=== PATIENT | female | born 1970 | race Caucasian/White ===

== ENCOUNTER 2016-10-18 22:57 | Emergency (ER) | payer MEDICARE ==
[~2016-10-18] VITALS: Ht 162.6 cm; Wt 85.3 kg
[~2016-10-18 22:57] MED LIST: BIOT0.5P MC; LITH450T16 PO; LORA1TAB PO; METO100T11 PO; OMEG300C PO; OMEP20TA8 PO; PRAV20TA PO; SPIR100T2 PO; ZOLP10TA PO
[2016-10-18] MEDS ORDERED: RABIES IMMUNE GLOBULIN PF 150 UNIT/ML 10ML VIAL. VAX IM ONE (23:30)
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
[2016-10-19] MEDS ORDERED: RABIES VIRUS VACC PF 2.5 UNIT / 1 ML VIAL. VAX IM ONE (00:30)
[2016-10-19] MEDS ORDERED: RABIES IMMUNE GLOBULIN PF 300 UNIT/2 ML VIAL. VAX IM ONE (00:30)
[2016-10-19] MEDS ORDERED: RABIES IMMUNE GLOBULIN PF 150 UNIT/ML 10ML VIAL. VAX IM ONE (00:30)
[2016-10-19 01:35] VITALS: BP 150/80
== END 2016-10-19 01:35 | disposition home or self-care (01) ==
LOC: ER 22:57
DX: Z20.3 Contact with and (suspected) exposure to rabies (principal); I10 Essential (primary) hypertension; E03.9 Hypothyroidism, unspecified; Z88.5 Allergy status to narcotic agent
CPT/HCPCS: 90376; 90471; 90675; 96372; 99284-25

== ENCOUNTER 2017-05-04 13:21 | Emergency (ER) | payer MEDICARE ==
[~2017-05-04 13:21] MED LIST changes: +METO-247 PO; -METO100T11 PO
--- NOTE | 2017-05-04 14:14 | RAD ---
CT of the head without contrast, 05/04/2017: History: Injury The ventricles are within normal limits in size. There is no shift of the midline structures. There is no evidence of acute intracranial hemorrhage or mass effect. IMPRESSION: No acute intracranial abnormality is detected. PQRS Compliance Statement: One or more of the following individualized dose reduction techniques were utilized for this examination: 1. Automated exposure control 2. Adjustment of the mA and/or kV according to patient size 3. Use of iterative reconstruction technique
--- NOTE | 2017-05-04 14:36 | PHYS DOC ---
Past History Past Medical History: Anxiety, Bipolar, High Cholesterol, Hypertension Past Surgical History: , Tubal ligation, Other Additional Past Surgical Histo: right shoulder surg Smoking: Non-smoker Alcohol Use: None Drug Use: None Adult General Chief Complaint Chief Complaint: HEAD INJURY/TRAUMA [facility] HPI 46-year-old female patient state she was doing laundry yesterday and stand up suddenly and hit left side of her head to the corner of wooden cabinet without loss of consciousness. Patient complaining of nausea for a short time and contusion of scalp and called her primary care physician today who recommended to come to ER for evaluation. Patient denies focal neurodeficit, blurred vision , vomiting, confusion, fever and chills, neck pain. Review of Systems Review of Systems Constitutional: Denies fever or chills [] Eyes: Denies change in visual acuity, redness, or eye pain [] HENT: Denies nasal congestion or sore throat [] Respiratory: Denies cough or shortness of breath [] Cardiovascular: No additional information not addressed in HPI [] GI: Denies abdominal pain, vomiting, bloody stools or diarrhea, reports nausea [] : Denies dysuria or hematuria [] Musculoskeletal: Denies back pain or joint pain [] Integument: Denies rash or skin lesions [] Neurologic: Denies headache, focal weakness or sensory changes [] Endocrine: Denies polyuria or polydipsia [] All other systems were reviewed and found to be within normal limits, except as documented in this note. Allergies Allergies Allergies Coded Allergies Type Severity Reaction Last Updated Verified morphine Allergy Intermediate Itching 02/13/13 Yes Physical Exam Physical Exam Constitutional: Well developed, well nourished, no acute distress, non-toxic appearance. [] HENT: Normocephalic, bilateral external ears normal, oropharynx moist, no oral exudates, nose normal, contusion of left parietal[] Eyes: PERRLA, EOMI, conjunctiva normal, no discharge. [] Neck: Normal range of motion, no tenderness, supple, no stridor. [] Cardiovascular:Heart rate regular rhythm, no murmur [] Lungs & Thorax: Bilateral breath sounds clear to auscultation [] Abdomen: Bowel sounds normal, soft, no tenderness, no masses, no pulsatile masses. [] Skin: Warm, dry, no erythema, no rash. [] Back: No tenderness, no CVA tenderness. [] Extremities: No tenderness, no cyanosis, no clubbing, ROM intact, no edema. [] Neurologic: Alert and oriented X 3, normal motor function, normal sensory function, no focal deficits noted. [] Psychologic: Affect normal, judgement normal, mood normal. [] Current Patient Data Vital Signs Vital Signs Date Time Temp Pulse Resp B/P (MAP) Pulse Ox O2 Delivery O2 Flow Rate FiO2 05/04/17 13:21 98.2 91 18 98 Room Air EKG EKG [] Radiology/Procedures Radiology/Procedures [ [address] [address] IMAGING REPORT Signed PATIENT: BROOKLYN NAYAK ACCOUNT: [id number] : 1970 LOCATION: ER AGE: 46 SEX: F EXAM STATUS: REG ER ORD. PHYSICIAN: RYLAN RITTER MD REASON: head injury PROCEDURE: CT HEAD WO CONTRAST CT of the head without contrast, 05/04/2017: History: Injury The ventricles are within normal limits in size. There is no shift of the midline structures. There is no evidence of acute intracranial hemorrhage or mass effect. IMPRESSION: No acute intracranial abnormality is detected. PQRS Compliance Statement: One or more of the following individualized dose reduction techniques were utilized for this examination: 1. Automated exposure control 2. Adjustment of the mA and/or kV according to patient size 3. Use of iterative reconstruction technique DICTATED AND SIGNED BY: GIOVANNI GROVE MD DATE: 05/04/17 3590 CC: RYLAN RITTER MD; PCP,NO ~] Course & Med Decision Making Course & Med Decision Making Pertinent Imaging studies reviewed. (See chart for details) Evaluation of patient in ER showed 46-year-old female patient with a markedly injury yesterday without other symptom except for scalp contusion. CT head and neuro exam was unremarkable. Patient did not want to have pain medication in ER. [discharge: I've spoken with the patient and/or caregivers. I've explained the patient's condition, diagnosis and treatment plan based on information available to me at this time. I've answered the patient's and/or caregivers questions and addressed any concerns. The patient and/or caregivers have a good understanding the patient's diagnosis, condition and treatment plan as can be expected at this point. Vital signs have been stabilized. The patient's condition is stable for discharge from the emergency department. The patient will pursue further outpatient evaluation with her primary care provider or other designated consulting physician as outlined in the discharge instructions. Patient and/or caregivers are agreeable to this plan of care and follow-up instructions have been explained in detail. The patient and/or caregivers have received these instructions in written format and expressed understanding of these discharge instructions. The patient and her caregivers are aware that if any significant change in condition or worsening of symptoms should prompt him to immediately return to this of the closest emergency department. If an emergent department is not readily available I would encourage him to call 911.] Dragon Disclaimer Dragon Disclaimer This electronic medical record was generated, in whole or in part, using a voice recognition dictation system. Departure Departure: Impression: Primary Impression: Head injury Additional Impression: Scalp contusion Condition: STABLE Referrals: PCP,NO (PCP) Patient Instructions: Contusion, Head Injury, Adult Additional Instructions: Apply ice on the affected area Drink plenty of liquids Follow-up with your primary care physician in 3-5 days Return to ER if not getting better Problem Qualifiers RYLAN RITTER MD May 04, 2017 14:36
[2017-05-04 14:57] VITALS: BP 126/72
== END 2017-05-04 14:57 | disposition home or self-care (01) ==
LOC: ER 13:21
DX: S00.03XA Contusion of scalp, initial encounter (principal); E78.00 Pure hypercholesterolemia, unspecified; I10 Essential (primary) hypertension; F32.9 Major depressive disorder, single episode, unspecified; Z88.5 Allergy status to narcotic agent; W22.8XXA Striking against or struck by other objects, initial encounter; Y93.E2 Activity, laundry; Y99.8 Other external cause status; Y92.89 Other specified places as the place of occurrence of the external cause
CPT/HCPCS: 70450; 99284-25

== ENCOUNTER 2017-05-06 00:10 | Emergency (ER) | payer OTHER, MEDICARE ==
[~2017-05-06] VITALS: Ht 162.6 cm; Wt 85.2 kg
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
[2017-05-06] MEDS ORDERED: ONDANSETRON ODT 4 MG TAB.RAPDIS PO ONE (00:30)
[2017-05-06] MEDS ORDERED: LORazepam 1 MG TABLET PO ONE (01:00)
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
[2017-05-06] MEDS ORDERED: oxyCODONE/APAP 5/325 1 TAB TABLET PO ONE (01:15)
[2017-05-06 01:30] VITALS: BP 150/100
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
== END 2017-05-06 01:37 | disposition home or self-care (01) ==
LOC: ER 00:10
DX: S06.0X0A Concussion without loss of consciousness, initial encounter (principal); S13.4XXA Sprain of ligaments of cervical spine, initial encounter; S40.011A Contusion of right shoulder, initial encounter; S20.211A Contusion of right front wall of thorax, initial encounter; E78.00 Pure hypercholesterolemia, unspecified; I10 Essential (primary) hypertension; F41.9 Anxiety disorder, unspecified; F31.9 Bipolar disorder, unspecified; Z88.5 Allergy status to narcotic agent; Z88.1 Allergy status to other antibiotic agents; Z88.2 Allergy status to sulfonamides; V43.52XA Car driver injured in collision with other type car in traffic accident, initial encounter; Y93.89 Activity, other specified; Y99.8 Other external cause status; Y92.488 Other paved roadways as the place of occurrence of the external cause
CPT/HCPCS: 70450; 71046; 72125; 73030; 99284; Q0162

== ENCOUNTER 2017-07-10 02:46 | Emergency (ER) | payer OTHER, MEDICARE ==
[~2017-07-10] VITALS: Ht 162.6 cm; Wt 83.0 kg
[2017-07-10 02:46] VITALS: BP 147/71
--- NOTE | 2017-07-10 03:22 | PHYS DOC ---
Past History Past Medical History: Anxiety, Bipolar, High Cholesterol, Hypertension Past Surgical History: , Other Additional Past Surgical Histo: right shoulder surg Smoking: Non-smoker Alcohol Use: None Drug Use: None Adult General Chief Complaint Chief Complaint: ANXIETY/PANIC ATTACK [facility] HPI 47-year-old female with a history of anxiety and bipolar disease now presents the emergency department because she's having a panic attack this evening. Patient has been under a lot of stress lately. She is out of her Ativan and is requesting medication for anxiety. Patient is due to fill her prescription tomorrow but she is too anxious to be able to sleep this evening. Patient denies suicidal ideation and homicidal ideation and overdose or self injury. She is able to function but is just suffering with anxiety. Her is present with her and confirms this history. Review of Systems Review of Systems Constitutional: Denies fever or chills [] Eyes: Denies change in visual acuity, redness, or eye pain [] HENT: Denies nasal congestion or sore throat [] Respiratory: Denies cough or shortness of breath [] Cardiovascular: No additional information not addressed in HPI [] GI: Denies abdominal pain, nausea, vomiting, bloody stools or diarrhea [] : Denies dysuria or hematuria [] Musculoskeletal: Denies back pain or joint pain [] Integument: Denies rash or skin lesions [] Neurologic: Denies headache, focal weakness or sensory changes [] Endocrine: Denies polyuria or polydipsia [] All other systems were reviewed and found to be within normal limits, except as documented in this note. Allergies Allergies Allergies Coded Allergies Type Severity Reaction Last Updated Verified morphine Allergy Intermediate Itching 05/06/17 Yes sulfamethoxazole Allergy Intermediate Itching 05/06/17 Yes trimethoprim Allergy Intermediate Itching 05/06/17 Yes Physical Exam Physical Exam Mildly anxious appearing pleasant female alert communicative and cooperative. She is requesting anxiety medication HENT: Normocephalic, atraumatic, bilateral external ears normal, oropharynx moist, no oral exudates, nose normal. [] Eyes: PERRLA, EOMI, conjunctiva normal, no discharge. [] Neck: Normal range of motion, no tenderness, supple, no stridor. [] Cardiovascular:Heart rate regular rhythm, no murmur [] Lungs & Thorax: Bilateral breath sounds clear to auscultation [] Abdomen: Bowel sounds normal, soft, no tenderness, no masses, no pulsatile masses. [] Skin: Warm, dry, no erythema, no rash. [] Back: No tenderness, no CVA tenderness. [] Extremities: No tenderness, no cyanosis, no clubbing, ROM intact, no edema. [] Neurologic: Alert and oriented X 3, normal motor function, normal sensory function, no focal deficits noted. [] Psychologic: Affect anxious EKG EKG [] Radiology/Procedures Radiology/Procedures [] Course & Med Decision Making Course & Med Decision Making Pertinent Labs and Imaging studies reviewed. (See chart for details) Signs and symptoms consistent with exacerbation of anxiety and patient with a chronic history thereof. She has no evidence of psychiatric emergency. She is mildly anxious but pleasant and cooperative. Ativan dose will be given patient is aware to fill her prescription today and states she will be able to do that. No further workup or treatment indicated at this time. Patient agrees with outpatient follow-up and strict return precautions given [] Dragon Disclaimer Dragon Disclaimer This electronic medical record was generated, in whole or in part, using a voice recognition dictation system. Departure Departure: Impression: Primary Impression: Anxiety Additional Impression: Panic attack Disposition: HOME, SELF-CARE Condition: IMPROVED Referrals: VINNY MCNAIR MD (PCP) Patient Instructions: Anxiety and Panic Attacks, [id number] Additional Instructions: As you know you're suffering from anxiety. You been given a dose of Ativan to address this. Fill your doctor's prescription for Ativan as you intend today. Follow-up with your doctor tomorrow and psychiatric services as an outpatient as needed. Bowel 911 or Return immediately for new severe worsening symptoms and specifically if you ever feel he may be a danger to yourself Problem Qualifiers SUMAYA RAMOS MD July 10, 2017 03:22
[2017-07-10] MEDS ORDERED: LORazepam 1 MG TABLET PO ONE (03:30)
== END 2017-07-10 03:30 | disposition home or self-care (01) ==
LOC: ER 02:46
DX: F41.0 Panic disorder [episodic paroxysmal anxiety] (principal); F31.9 Bipolar disorder, unspecified; E78.00 Pure hypercholesterolemia, unspecified; I10 Essential (primary) hypertension; Z88.5 Allergy status to narcotic agent; Z88.2 Allergy status to sulfonamides; Z88.1 Allergy status to other antibiotic agents
CPT/HCPCS: 99284

== ENCOUNTER 2017-08-07 04:41 | Emergency (ER) | payer MEDICARE, OTHER ==
[~2017-08-07] VITALS: Ht 162.6 cm; Wt 79.4 kg
[2017-08-07] MEDS ORDERED: LISI1TAB7 PO (05:23)
[2017-08-07] MEDS ORDERED: IV NORMAL SALINE 1,000ML 1,000 ML IV ONE (05:30)
--- NOTE | 2017-08-07 05:41 | PHYS DOC ---
Past History Past Medical History: Bipolar, Hypertension, IBS Past Surgical History: Additional Past Surgical Histo: right shoulder surg Smoking: Non-smoker Alcohol Use: None Drug Use: None Adult General Chief Complaint Chief Complaint: NEAR SYCOPE [facility] HPI Patient is a 47 YO F HX OF HTN AND bipolar disorder and a possible diagnosis of irritable bowel syndrome she tells me who [facility] after a near syncopal event. Patient said that she has been working on a new diet with a insoluble fiber focus in order to improve her symptoms of irritable bowel syndrome where she does have intermittent diarrhea and vomiting on a fairly regular basis. She says she has been exercising more she walks 6 miles yesterday and unfortunately it was hotter than she anticipated she was worried that she might be getting dehydrated. She woke up this evening she had some abdominal cramping and then went to the bathroom and had a large liquid brown stool associated nausea when she got up to go back to her bed she got woozy like she might pass out so she brought herself slowly to the ground did not hit her head. Eventually called for her who tried to have her walk but she was weak so called 911. On underwriter's EKG the QT interval was 470. Patient currently symptoms are resolved she feels much better she actually feels fine now no chest pain no headache no dizziness no abdominal pain she did take a Zofran today as well Review of Systems Review of Systems Constitutional: Denies fever or chills [] Eyes: Denies change in visual acuity, redness, or eye pain [] HENT: Denies nasal congestion or sore throat [] Cardiovascular: No additional information not addressed in HPI [] GI: Denies bloody stools : Denies dysuria or hematuria [] All other systems were reviewed and found to be within normal limits, except as documented in this note. Current Medications Current Medications Current Medications Medications (Trade) Dose Ordered Sig/Jose Start Time Stop Time Status Last Admin Dose Admin Sodium Chloride 1,000 ml @ 1,000 mls/hr 1X ONCE 08/07/17 05:30 08/07/17 06:29 UNV Allergies Allergies Allergies Coded Allergies Type Severity Reaction Last Updated Verified morphine Allergy Intermediate Itching 05/06/17 Yes sulfamethoxazole Allergy Intermediate Itching 05/06/17 Yes trimethoprim Allergy Intermediate Itching 05/06/17 Yes Physical Exam Physical Exam Constitutional: Well developed, well nourished, no acute distress, non-toxic appearance. [] HENT: Normocephalic, atraumatic, bilateral external ears normal, oropharynx moist, no oral exudates, nose normal. [] Eyes: PERRLA, EOMI, conjunctiva normal, no discharge. [] Neck: Normal range of motion, no tenderness, supple, no stridor. [] Cardiovascular:Heart rate regular rhythm, no murmur [] Lungs & Thorax: Bilateral breath sounds clear to auscultation [] Abdomen: Bowel sounds normal, soft, no tenderness, no masses, no pulsatile masses. [] Skin: Warm, dry, no erythema, no rash. [] Back: No tenderness, no CVA tenderness. [] Extremities: No tenderness, no cyanosis, no clubbing, ROM intact, no edema. [] Neurologic: Alert and oriented X 3, normal motor function, normal sensory function, no focal deficits noted. [] Psychologic: Affect normal, judgement normal, mood normal. [] Current Patient Data Vital Signs Vital Signs Date Time Temp Pulse Resp B/P (MAP) Pulse Ox O2 Delivery O2 Flow Rate FiO2 08/07/17 04:52 98.4 71 19 99 Room Air EKG EKG []EKG shows a normal sinus rhythm GA intervals 214 patient is on metoprolol QTC of 520 as read by the computer this is likely accurate as it does appear slightly prolonged to me. No STEMI no ischemic changes nonspecific ST changes noted laterally and inferiorly as well. Radiology/Procedures Radiology/Procedures [] Course & Med Decision Making Course & Med Decision Making Pertinent Labs and Imaging studies reviewed. (See chart for details) []This is a 47-year-old female with history of bipolar disorder and hypertension was presenting to the ER brought in by ambulance after a near syncope event in the setting of a large episode of diarrhea. Apparently this patient has a history of recurrent diarrhea she thinks she has irritable bowel syndrome. Overall the history sounded very much like a vasovagal event with some transient hypotension after a large bowel movement. This is very likely to be what occurred however the QT interval is 520 we need to check lithium level electrolytes . WILL HYDRATE AND GO FROM THERE. care to dr cisneros pending repletion of potassium, check lithium level review other chemistry and recheck ekg. Dragon Disclaimer Dragon Disclaimer This electronic medical record was generated, in whole or in part, using a voice recognition dictation system. Departure Departure: Referrals: VINNY MCNAIR MD (PCP) JAGDISH NICHOLS MD Aug 07, 2017 05:41
[2017-08-07 05:44] LABS: PREG TEST PT QUAL NEGATIVE (NEG)
[2017-08-07 05:45] LABS: WHITE BLOOD COUNT 9.6 x10^3/uL (4.0-11.0)
[2017-08-07 05:46] LABS: BASO # 0.1 x10^3/uL (0.0-0.2); BASO % 1 % (0-3); EOS # 0.4 x10^3/uL (0.0-0.7); EOS % 4 % (0-3); HEMATOCRIT 39.5 % (36.0-47.0); HEMOGLOBIN 13.7 g/dL (12.0-15.5); LYMPH # 2.4 x10^3/uL (1.0-4.8); LYMPH % 25 % (24-48); MEAN CORPUSCULAR HEMOGLOBIN 34 pg (25-35); MEAN CORPUSCULAR HGB CONC 35 g/dL (31-37); MEAN CORPUSCULAR VOLUME 96 fL (79-100); MONO # 0.6 x10^3/uL (0.0-1.1); MONO % 6 % (0-9); NEUT # 6.1 x10^3uL (1.8-7.7); NEUT % 64 % (31-73); PLATELET COUNT 325 x10^3/uL (140-400); RED CELL DISTRIBUTION WIDTH 12.2 % (11.5-14.5)
[2017-08-07 05:58] LABS: ALBUMIN 3.6 g/dL (3.4-5.0); CALCIUM 8.9 mg/dL (8.5-10.1); GFR 58.9; MAGNESIUM 1.6 mg/dL (1.8-2.4); TOTAL BILIRUBIN 0.5 mg/dL (0.2-1.0); TOTAL PROTEIN 7.1 g/dL (6.4-8.2)
[2017-08-07 06:01] LABS: POTASSIUM 2.7 mmol/L (3.5-5.1)
[2017-08-07] MEDS ORDERED: POTASSIUM CHLORIDE 20 MEQ/15 ML ORAL LIQUID. PO ONE (06:15)
[2017-08-07] MEDS ORDERED: POTASSIUM CHLORIDE 30 MEQ in IV 1/2 NORMAL SALINE 1,000 ML IV SCH (06:15)
[2017-08-07] MEDS ORDERED: LORazepam 1 MG TABLET PO ONE (06:30)
[2017-08-07] MEDS ORDERED: MAGNESIUM SULFATE IV SCH (06:45)
[2017-08-07] MEDS ORDERED: 1/2 NORMAL SALINE IV SCH (06:45)
[2017-08-07] MEDS ORDERED: POTASSIUM CHLORIDE IV SCH (06:45)
--- NOTE | 2017-08-07 06:55 | PHYS DOC ---
Past History Past Medical History: Bipolar, Hypertension, IBS Past Surgical History: Additional Past Surgical Histo: right shoulder surg Smoking: Non-smoker Alcohol Use: None Drug Use: None Adult General Chief Complaint Chief Complaint: NEAR SYCOPE HPI HPI 47-year-old female presents with diarrhea and near-syncope. I am taking over this patient from . Please see his note for further details. Review of Systems Review of Systems Constitutional: Denies fever or chills [] Eyes: Denies change in visual acuity, redness, or eye pain [] HENT: Denies nasal congestion or sore throat [] Respiratory: Denies cough or shortness of breath [] Cardiovascular: No additional information not addressed in HPI [] GI: diarrhea [] : Denies dysuria or hematuria [] Musculoskeletal: Denies back pain or joint pain [] Integument: Denies rash or skin lesions [] Neurologic: near syncope [] Endocrine: Denies polyuria or polydipsia [] All other systems were reviewed and found to be within normal limits, except as documented in this note. Current Medications Current Medications Current Medications Medications (Trade) Dose Ordered Sig/Jose Start Time Stop Time Status Last Admin Dose Admin Lorazepam (Ativan) 1 mg 1X ONCE 08/07/17 06:30 08/07/17 06:31 DC 08/07/17 06:37 1 MG Potassium Chloride 30 meq/ Magnesium Sulfate 1 gm/Sodium Chloride 1,017 ml @ 500 mls/hr Q2H3M 08/07/17 06:45 Potassium Chloride 30 meq/ Sodium Chloride 1,015 ml @ 500 mls/hr Q2H2M 08/07/17 06:15 08/07/17 06:44 DC Potassium Chloride (KCl Oral Soln) 40 meq 1X ONCE 08/07/17 06:15 08/07/17 06:17 DC 08/07/17 06:36 40 MEQ Sodium Chloride 1,000 ml @ 1,000 mls/hr 1X ONCE 08/07/17 05:30 08/07/17 06:29 DC 08/07/17 05:30 1,000 MLS/HR Allergies Allergies Allergies Coded Allergies Type Severity Reaction Last Updated Verified morphine Allergy Intermediate Itching 05/06/17 Yes sulfamethoxazole Allergy Intermediate Itching 05/06/17 Yes trimethoprim Allergy Intermediate Itching 05/06/17 Yes Physical Exam Physical Exam Constitutional: Well developed, well nourished, no acute distress, non-toxic appearance. [] HENT: Normocephalic, atraumatic, bilateral external ears normal, oropharynx moist, no oral exudates, nose normal. [] Eyes: PERRLA, EOMI, conjunctiva normal, no discharge. [] Neck: Normal range of motion, no tenderness, supple, no stridor. [] Cardiovascular:Heart rate regular rhythm, no murmur [] Lungs & Thorax: Bilateral breath sounds clear to auscultation [] Abdomen: Bowel sounds normal, soft, no tenderness, no masses, no pulsatile masses. [] Skin: Warm, dry, no erythema, no rash. [] Back: No tenderness, no CVA tenderness. [] Extremities: No tenderness, no cyanosis, no clubbing, ROM intact, no edema. [] Neurologic: Alert and oriented X 3, normal motor function, normal sensory function, no focal deficits noted. [] Psychologic: Affect normal, judgement normal, mood normal. [] Current Patient Data Vital Signs Vital Signs Date Time Temp Pulse Resp B/P (MAP) Pulse Ox O2 Delivery O2 Flow Rate FiO2 08/07/17 05:52 66 18 124/93 (103) 97 Room Air 08/07/17 04:52 98.4 Lab Results Laboratory Tests Test 08/07/17 05:03 White Blood Count 9.6 x10^3/uL (4.0-11.0) Red Blood Count 4.10 x10^6/uL (3.50-5.40) Hemoglobin 13.7 g/dL (12.0-15.5) Hematocrit 39.5 % (36.0-47.0) Mean Corpuscular Volume 96 fL (79-100) Mean Corpuscular Hemoglobin 34 pg (25-35) Mean Corpuscular Hemoglobin Concent 35 g/dL (31-37) Red Cell Distribution Width 12.2 % (11.5-14.5) Platelet Count 325 x10^3/uL (140-400) Neutrophils (%) (Auto) 64 % (31-73) Lymphocytes (%) (Auto) 25 % (24-48) Monocytes (%) (Auto) 6 % (0-9) Eosinophils (%) (Auto) 4 % (0-3) H Basophils (%) (Auto) 1 % (0-3) Neutrophils # (Auto) 6.1 x10^3uL (1.8-7.7) Lymphocytes # (Auto) 2.4 x10^3/uL (1.0-4.8) Monocytes # (Auto) 0.6 x10^3/uL (0.0-1.1) Eosinophils # (Auto) 0.4 x10^3/uL (0.0-0.7) Basophils # (Auto) 0.1 x10^3/uL (0.0-0.2) Sodium Level 138 mmol/L (136-145) Potassium Level 2.7 mmol/L (3.5-5.1) *L Chloride Level 102 mmol/L (98-107) Carbon Dioxide Level 29 mmol/L (21-32) Anion Gap 7 (6-14) Blood Urea Nitrogen 11 mg/dL (7-20) Creatinine 1.0 mg/dL (0.6-1.0) Estimated GFR (Cockcroft-Gault) 58.9 BUN/Creatinine Ratio 11 (6-20) Glucose Level 116 mg/dL (70-99) H Calcium Level 8.9 mg/dL (8.5-10.1) Magnesium Level 1.6 mg/dL (1.8-2.4) L Total Bilirubin 0.5 mg/dL (0.2-1.0) Aspartate Amino Transferase (AST) 21 U/L (15-37) Alanine Aminotransferase (ALT) 34 U/L (14-59) Alkaline Phosphatase 92 U/L (46-116) Total Protein 7.1 g/dL (6.4-8.2) Albumin 3.6 g/dL (3.4-5.0) Albumin/Globulin Ratio 1.0 (1.0-1.7) Lipase 132 U/L (73-393) Serum Test, Qualitative Negative (NEG) EKG EKG Sinus rhythm, rate 69, normal axis, prolonged Qtc 520, flattened T waves[] Radiology/Procedures Radiology/Procedures [] Course & Med Decision Making Course & Med Decision Making Pertinent Labs and Imaging studies reviewed. (See chart for details) The patient has a low potassium of 2.7 and magnesium of 1.6. Given that she has EKG changes, we will replace both of these. She will be given oral potassium as well as IV. After the patient's replacements were complete, her repeat EKG has a QTC of 434. She is feeling much better. I believe she is stable for discharge at this time. She will discontinue her Zofran use and talk with her PCP about adding a multivitamin and/or potassium supplementation. [] Dragon Disclaimer Dragon Disclaimer This electronic medical record was generated, in whole or in part, using a voice recognition dictation system. Departure Departure: Referrals: VINNY MCNAIR MD (PCP) OLINDA NEGRETE DO Aug 07, 2017 06:55
--- NOTE | 2017-08-07 09:25 | EKG ---
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
[2017-08-07 09:58] VITALS: BP 104/67
[2017-08-07 16:17] LABS: LI 1.4 mmol/L (0.6-1.2)
== END 2017-08-07 10:02 | disposition home or self-care (01) ==
LOC: ER 04:41
DX: R55 Syncope and collapse (principal); R19.7 Diarrhea, unspecified; F31.9 Bipolar disorder, unspecified; I10 Essential (primary) hypertension; K58.0 Irritable bowel syndrome with diarrhea; Z88.5 Allergy status to narcotic agent; Z88.2 Allergy status to sulfonamides; Z88.1 Allergy status to other antibiotic agents
CPT/HCPCS: 36415; 80053; 80178; 83690; 83735; 84703; 85025; 93005; 96361; 96365; 96366; 99285; J7030

== ENCOUNTER 2017-11-02 13:07 | Emergency (ER) | payer MEDICARE ==
[~2017-11-02] VITALS: Ht 162.6 cm; Wt 81.6 kg
[~2017-11-02 13:07] MED LIST changes: +LISI1TAB7 PO; +LORA-254 PO; -LORA1TAB PO; -SPIR100T2 PO; +SPIR100T4 PO
--- NOTE | 2017-11-02 14:18 | PHYS DOC ---
Past History Past Medical History: Anxiety, Bipolar, Hypertension, IBS Past Surgical History: Additional Past Surgical Histo: right shoulder surg Smoking: Non-smoker Alcohol Use: None Drug Use: None Adult General Chief Complaint Chief Complaint: ANXIETY/PANIC ATTACK HPI HPI Patient is a 47 year old female who presents with complaining of anxiety. Patient states she has history of bipolar disorder and ran out of her Xanax and Ambien and just got her medication. Patient states her 17-year-old son decided to get up off of school and she getting under stress and took 2.5 pills of Xanax 0.5 mg in a short period of time without suicidal and homicidal ideation and her was concerned about taking too much medication. Patient denies chest pain, shortness of breath, nausea and vomiting, focal neuro deficit, history of suicidal thoughts or previous drug overdose. Review of Systems Review of Systems Constitutional: Denies fever or chills [] Eyes: Denies change in visual acuity, redness, or eye pain [] HENT: Denies nasal congestion or sore throat [] Respiratory: Denies cough or shortness of breath [] Cardiovascular: No additional information not addressed in HPI [] GI: Denies abdominal pain, nausea, vomiting, bloody stools or diarrhea [] : Denies dysuria or hematuria [] Musculoskeletal: Denies back pain or joint pain [] Integument: Denies rash or skin lesions [] Neurologic: Denies headache, focal weakness or sensory changes [] Endocrine: Denies polyuria or polydipsia [] All other systems were reviewed and found to be within normal limits, except as documented in this note. Allergies Allergies Allergies Coded Allergies Type Severity Reaction Last Updated Verified morphine Allergy Intermediate Itching 05/06/17 Yes sulfamethoxazole Allergy Intermediate Itching 05/06/17 Yes trimethoprim Allergy Intermediate Itching 05/06/17 Yes Physical Exam Physical Exam Constitutional: Well developed, well nourished, mild distress, non-toxic appearance. [] HENT: Normocephalic, atraumatic Eyes: PERRLA, EOMI, conjunctiva normal, no discharge. [] Neck: Normal range of motion, no tenderness, supple, no stridor. [] Cardiovascular:Heart rate regular rhythm, no murmur [] Lungs & Thorax: Bilateral breath sounds clear to auscultation [] Abdomen: Bowel sounds normal, soft, no tenderness, no masses, no pulsatile masses. [] Skin: Warm, dry, no erythema, no rash. [] Back: No tenderness, no CVA tenderness. [] Extremities: No tenderness, no cyanosis, no clubbing, ROM intact, no edema. [] Neurologic: Alert and oriented X 3, normal motor function, normal sensory function, no focal deficits noted. [] Psychologic: Affect anxious, judgement normal, mood normal. [] Current Patient Data Vital Signs Vital Signs Date Time Temp Pulse Resp B/P (MAP) Pulse Ox O2 Delivery O2 Flow Rate FiO2 11/02/17 13:20 98.0 100 16 97 Room Air EKG EKG [] Radiology/Procedures Radiology/Procedures [] Course & Med Decision Making Course & Med Decision Making Evolution of patient in ER showed 47-year-old female patient with history of anxiety presented to ER because of concern for taking too much Xanax. Patient had 1.25 mg of Xanax a short period of time. Patient did not have suicidal or homicidal ideation. Patient instructed to not take medication more than prescribed and follow up with her psychiatric physician. Patient was with her in emergency room and was very supportive and plans to give her medication by himself. Dragon Disclaimer Dragon Disclaimer This electronic medical record was generated, in whole or in part, using a voice recognition dictation system. Departure Departure: Impression: Primary Impression: Panic attack Disposition: HOME, SELF-CARE (At 1416) Condition: STABLE Referrals: VINNY MCNAIR MD (PCP) Patient Instructions: Anxiety and Panic Attacks Additional Instructions: Follow-up with your primary care and psychiatric physician in 2-3 days Return to ER if not getting better RYLAN RITTER MD Nov 02, 2017 14:18
[2017-11-02 14:25] VITALS: BP 135/79
== END 2017-11-02 14:29 | disposition home or self-care (01) ==
LOC: ER 13:07
DX: F41.0 Panic disorder [episodic paroxysmal anxiety] (principal); F31.9 Bipolar disorder, unspecified; I10 Essential (primary) hypertension; K58.9 Irritable bowel syndrome, unspecified; Z88.5 Allergy status to narcotic agent; Z88.1 Allergy status to other antibiotic agents
CPT/HCPCS: 99284